=== PATIENT | male | born 1965 | race Caucasian/White ===

== ENCOUNTER → 2016-11-14 | Outpatient (CLI) | payer OTHER | LOC: KOH-I 10:23 | DX: M51.9 Unspecified thoracic, thoracolumbar and lumbosacral intervertebral disc disorder (principal); M46.90 Unspecified inflammatory spondylopathy, site unspecified; J44.9 Chronic obstructive pulmonary disease, unspecified; M19.90 Unspecified osteoarthritis, unspecified site; R80.9 Proteinuria, unspecified; E78.5 Hyperlipidemia, unspecified; N28.1 Cyst of kidney, acquired; G47.33 Obstructive sleep apnea (adult) (pediatric); Z79.82 Long term (current) use of aspirin; M51.36 Other intervertebral disc degeneration, lumbar region; M47.816 Spondylosis without myelopathy or radiculopathy, lumbar region | CPT/HCPCS: 72148 ==

== ENCOUNTER → 2016-11-17 | Outpatient (CLI) | payer OTHER ==
[2016-11-17 13:04] LABS: BUN/CREATININE RATIO 10 (0-10)
== END ==
LOC: LAB 11:22
PROVIDERS: Internal Medicine Nephrology
DX: R80.9 Proteinuria, unspecified (principal); R78.5 Finding of other psychotropic drug in blood
CPT/HCPCS: 36415; 80053; 82043; 82550; 82570; 83516; 84156; 86039; 86160; 86162; 86225; 86334; 86803; 87340

== ENCOUNTER → 2016-11-21 | Outpatient (CLI) | payer OTHER ==
[2016-11-21 08:42] LABS: URINE TOTAL PROTEIN 13 mg/dl
== END ==
LOC: CT 07:53
PROVIDERS: Internal Medicine Nephrology
DX: R80.9 Proteinuria, unspecified (principal); E78.5 Hyperlipidemia, unspecified; N28.1 Cyst of kidney, acquired
CPT/HCPCS: 74150; 84156

== ENCOUNTER → 2020-12-31 | Outpatient (CLI) | payer MEDICARE | LOC: KOH-I 10:16 | DX: Z00.01 Encounter for general adult medical examination with abnormal findings (principal); R55 Syncope and collapse; J44.9 Chronic obstructive pulmonary disease, unspecified; R91.8 Other nonspecific abnormal finding of lung field; H70.93 Unspecified mastoiditis, bilateral | CPT/HCPCS: 70551; 71271 ==

== ENCOUNTER → 2021-08-15 | Outpatient (CLI) | payer MEDICARE | LOC: MRI 08-02 13:00 | DX: C60.9 Malignant neoplasm of penis, unspecified (principal); K76.89 Other specified diseases of liver; R93.2 Abnormal findings on diagnostic imaging of liver and biliary tract; E27.8 Other specified disorders of adrenal gland | CPT/HCPCS: 36415; 74183; 82565; A9577 ==